=== PATIENT | male | born 2005 | race Caucasian/White ===

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

== ENCOUNTER 2025-02-17 11:00 | Outpatient (CLI) | payer OTHER, SELFPAY | END 2025-02-17 11:01 | disposition home or self-care (01) | LOC: NFLDREF 02-24 21:58 | PROVIDERS: Visit Provider Obstetrics & Gynecology | DX: F64.9 Gender identity disorder, unspecified (principal); Z79.899 Other long term (current) drug therapy | CPT/HCPCS: 82670; 84403 ==

== ENCOUNTER 2025-06-06 09:24 | Outpatient (CLI) | payer OTHER, SELFPAY | END 2025-06-06 09:25 | disposition home or self-care (01) | LOC: NFLDREF 06-11 20:18 | PROVIDERS: Visit Provider Obstetrics & Gynecology | DX: Z79.899 Other long term (current) drug therapy (principal) | CPT/HCPCS: 82670; 84403 ==